=== PATIENT | female | born 1995 | race Caucasian/White ===

== ENCOUNTER 2017-06-23 12:04 | Emergency (ER) | payer OTHER, MEDICAID ==
[~2017-06-23] VITALS: Ht 154.9 cm; Wt 78.9 kg
[~2017-06-23 12:04] MED LIST: ACTICIN 5% CREA60 G1 TOP; BACTRIM DS TAB1 EACH PO; BIRTH CONTROL; CIPROFLOXACIN500 M1 PO; CIPROFLOXIN HC2.5 M1 OPHTHALMIC; FLAGYL500 MG PO; HYDROXYZINE HCL10 M1 PO; IBUPROFEN; IRON; KEFLEX500 M1 PO; KEFLEX500 MG PO; MACROBID 100 M100 M1 PO; NOHOMEMEDICATIONS; NORCO; PREDNISONE 20 M20 MG PO; PRENATAL VITAM1 EAC7 PO; SEROQUEL 25 MG25 M2 PER TUBE; STOOL SOFTENER; TRAMADOL 50 MG50 MG PO; TRIAMCINOLONE A80 G2 TOP; TRINATE TABLET1 TAB PO
[2017-06-23] MEDS ORDERED: NAPROSYN500 MG PO (12:29)
[2017-06-23 12:39] VITALS: BP 104/56
== END 2017-06-23 12:40 | disposition home or self-care (01) ==
LOC: M.ERS 12:04
DX: S89.92XA Unspecified injury of left lower leg, initial encounter (principal); F17.210 Nicotine dependence, cigarettes, uncomplicated; W01.0XXA Fall on same level from slipping, tripping and stumbling without subsequent striking against object, initial encounter; Y93.89 Activity, other specified; Y92.59 Other trade areas as the place of occurrence of the external cause; Y99.8 Other external cause status

== ENCOUNTER 2017-07-04 00:39 | Emergency (ER) | payer OTHER, MEDICAID ==
[~2017-07-04] VITALS: Ht 154.9 cm; Wt 78.9 kg
[~2017-07-04 00:39] MED LIST changes: +NAPROSYN500 MG PO
[2017-07-04 01:28] LABS: URINE BILIRUBIN NEGATIVE (Negative); URINE BLOOD NEGATIVE (Negative); URINE CLARITY CLEAR; URINE COLOR YELLOW; URINE GLUCOSE-RANDOM NEGATIVE (Negative); URINE KETONES NEGATIVE (Negative); URINE LEUKOCYTES TRACE (Negative); URINE NITRITE NEGATIVE (Negative); URINE PROTEIN TRACE (Negative); URINE UROBILINOGEN 0.2 E.U./dl (0.2-1.0)
[2017-07-04] MEDS ORDERED: KEFLEX500 M1 PO (01:59)
[2017-07-04] MEDS ORDERED: FLAGYL500 MG PO (01:59)
[2017-07-04 02:05] VITALS: BP 146/84
[2017-07-04 02:05] LABS: SQUAMOUS >10 Many /LPF (0-3)
[2017-07-04 02:06] LABS: CASTS None Seen /LPF (None Seen); MUCUS 0-3 Light strn/LPF (None Seen)
[2017-07-04 02:07] LABS: CRYSTALS None Seen /LPF (None Seen); URINE RBC None Seen /HPF (0-2); URINE WBC 6-15 Few /HPF (0-5)
== END 2017-07-04 02:05 | disposition home or self-care (01) ==
LOC: M.ERS 00:39
PROVIDERS: Emergency Medicine Emergency Medical Services
DX: N76.0 Acute vaginitis (principal); B96.89 Other specified bacterial agents as the cause of diseases classified elsewhere; J02.9 Acute pharyngitis, unspecified; J45.909 Unspecified asthma, uncomplicated; F17.210 Nicotine dependence, cigarettes, uncomplicated

== ENCOUNTER 2017-07-26 18:17 | Emergency (ER) | payer OTHER, MEDICAID ==
[~2017-07-26] VITALS: Ht 154.9 cm; Wt 78.9 kg
[2017-07-26] MEDS ORDERED: KEFLEX500 M1 PO (18:34)
[2017-07-26 18:45] VITALS: BP 113/77
== END 2017-07-26 18:46 | disposition home or self-care (01) ==
LOC: M.ERS 18:17
DX: L03.114 Cellulitis of left upper limb (principal); F17.210 Nicotine dependence, cigarettes, uncomplicated; W57.XXXA Bitten or stung by nonvenomous insect and other nonvenomous arthropods, initial encounter; Y93.89 Activity, other specified; Y92.89 Other specified places as the place of occurrence of the external cause; Y99.8 Other external cause status

== ENCOUNTER 2017-08-23 05:37 | Emergency (ER) | payer OTHER, MEDICAID ==
[~2017-08-23] VITALS: Ht 154.9 cm; Wt 79.8 kg
[2017-08-23] MEDS ORDERED: AMOXICILLIN 50500 M1 PO (06:20)
[2017-08-23] MEDS ORDERED: PROAIR HFA8.5 GM PO (06:20)
[2017-08-23] MEDS ORDERED: PREDNISONE50 MG PO (06:20)
[2017-08-23 07:03] VITALS: BP 139/87
== END 2017-08-23 07:05 | disposition home or self-care (01) ==
LOC: M.ERS 05:37
DX: J40 Bronchitis, not specified as acute or chronic (principal); F17.210 Nicotine dependence, cigarettes, uncomplicated

== ENCOUNTER 2017-09-22 14:49 | Emergency (ER) | payer OTHER, MEDICAID ==
[~2017-09-22] VITALS: Ht 154.9 cm; Wt 79.8 kg
[~2017-09-22 14:49] MED LIST changes: +AMOXICILLIN 50500 M1 PO; +PREDNISONE50 MG PO; +PROAIR HFA8.5 GM PO
[2017-09-22] MEDS ORDERED: NOHOMEMEDICATIONS (15:26)
[2017-09-22 16:00] VITALS: BP 111/80
[2017-09-23] MEDS ORDERED: PENICILLIN VK500 MG PO (15:01)
== END 2017-09-22 16:02 | disposition home or self-care (01) ==
LOC: M.ERS 14:49
DX: O26.899 Other specified pregnancy related conditions, unspecified trimester (principal); S16.1XXA Strain of muscle, fascia and tendon at neck level, initial encounter; F17.210 Nicotine dependence, cigarettes, uncomplicated; Z3A.00 Weeks of gestation of pregnancy not specified; V49.9XXA Car occupant (driver) (passenger) injured in unspecified traffic accident, initial encounter; Y93.89 Activity, other specified; Y92.89 Other specified places as the place of occurrence of the external cause; Y99.8 Other external cause status

== ENCOUNTER 2017-09-23 14:14 | Emergency (ER) | payer OTHER, MEDICAID ==
[~2017-09-23] VITALS: Ht 154.9 cm; Wt 81.7 kg
[2017-09-23 14:35] VITALS: BP 124/77
[2017-09-23] MEDS ORDERED: PENICILLIN VK500 MG PO (15:01)
== END 2017-09-23 15:14 | disposition home or self-care (01) ==
LOC: M.ERS 14:14
DX: J02.0 Streptococcal pharyngitis (principal); J45.909 Unspecified asthma, uncomplicated; F17.210 Nicotine dependence, cigarettes, uncomplicated